=== PATIENT | male | born 1950 | race Caucasian/White ===

== ENCOUNTER 2022-06-13 08:12 | Day surgery (SDC) | payer MEDICARE, SELFPAY ==
[2022-06-11 11:36] VITALS: BMI 33.3
[2022-06-13 08:28] VITALS: BP 136/76; PULSE 48; RESP 17; TEMP 36.2; O2SAT 98
[2022-06-13 09:54] VITALS: BP 149/75; PULSE 52; RESP 18; TEMP 36.5; O2SAT 97
--- NOTE | 2022-06-13 12:59 | [facility].OPNOTE ---
Date of procedure: 06/13/22 Pre-op Diagnosis:: Penile adhesions Post-op Diagnosis:: Same Procedure performed:: Takedown of penile adhesions Surgeon:: Temo Watson MD Anesthesia: local Estimated blood loss (mL): 0 Clinical Note:: 71-year-old white male who had done an adult circumcision in 2016 has some recurrence of some penile adhesions at the bey of his glans. These are symptomatic and that he has some bleeding with intercourse frequently. Operative findings:: Circumferential adhesions to the bey of the glans penis. Operative note:: Patient taken to the operating suite after informed consent was obtained. On the stretcher he was prepped draped in the standard surgical fashion. 30 cc of local anesthetic were placed as a ring block around the base of the penis. After adequate analgesia the foreskin was retracted from the bey of the glans with minimal difficulty. This was done from the 7:00 to the 5 o'clock position. There were no adhesions at the very ventral aspect. There is minimal bleeding and the patient tolerated well. The foreskin was wrapped with a Vaseline impregnated gauze pad and covered with Jaimie in a loose fashion. Patient instructed to the cold adhesions back several times a day to prevent readhesion. Condition: stable Disposition: same day Specimens:: None Complications:: None
== END 2022-06-13 10:00 | disposition home or self-care (01) ==
LOC: OUTP 08:17
PROVIDERS: Visit Provider Urology
DX: N47.5 Adhesions of prepuce and glans penis (principal); E11.9 Type 2 diabetes mellitus without complications; E78.5 Hyperlipidemia, unspecified; I10 Essential (primary) hypertension
CPT/HCPCS: 54162